=== PATIENT | male | born 1960 | race Caucasian/White ===

== ENCOUNTER → 2024-03-12 07:03 | Outpatient (REF) | payer BC, SELFPAY | LOC: RAD 07:03 | PROVIDERS: ATTENDING PHYSICIAN Orthopaedic Surgery; FAMILY PHYSICIAN Physician Assistant Medical | DX: M25.511 Pain in right shoulder (principal) | CPT/HCPCS: 76882 ==

== ENCOUNTER → 2024-04-28 07:45 | Outpatient (REF) | payer BC, SELFPAY ==
[2024-04-28 09:36] LABS: Blood Urea Nitrogen 14 mg/dl (9-20); Carbon Dioxide 28 mmol/L (22-30); Chloride 104 mmol/L (98-107); Glucose 142 mg/dl (70-99); Potassium 4.3 mmol/L (3.5-5.1); Sodium 139 mmol/L (135-145); eGFR > 60.00
== END ==
LOC: RCS 07:45
PROVIDERS: ATTENDING PHYSICIAN Orthopaedic Surgery
DX: Z01.818 Encounter for other preprocedural examination (principal)
CPT/HCPCS: 36415; 80048; 93005